=== PATIENT | male | born 1960 | race African-American/Black ===

== ENCOUNTER 2020-03-14 17:23 | Emergency (ER) | payer OTHER ==
[~2020-03-14] VITALS: Ht 170.2 cm; Wt 63.5 kg
[~2020-03-14 17:23] MED LIST: NOHOMEMEDICATIONS; NORCO 5-325 TA1 EACH PO; TAMSULOSIN HCL0.4 M1 PO; TESSALON PERLE100 MG PO; TOVIAZ4 M1 PO; VENTOLIN HFA 1818 GM INH; ZOFRAN ODT4 MG PO; ZPAK PO
[2020-03-14] MEDS ORDERED: ZOFRAN ODT4 MG DISSOLVE (17:40)
[2020-03-14 17:52] VITALS: BP 121/74
== END 2020-03-14 17:53 | disposition home or self-care (01) ==
LOC: ER 17:23
DX: R11.2 Nausea with vomiting, unspecified (principal); R19.7 Diarrhea, unspecified; Z91.018 Allergy to other foods